=== PATIENT | female | born 1965 | race Caucasian/White ===

== ENCOUNTER 2020-06-10 08:49 | Emergency (ER) | payer BC ==
[~2020-06-10] VITALS: Ht 157.5 cm; Wt 72.6 kg
[2020-06-10 08:50] VITALS: BP_SYST 143
[2020-06-10 09:09] VITALS: BP_SYST 143
== END 2020-06-10 09:10 | disposition home or self-care (01) ==
LOC: SED 08:49
DX: L50.9 Urticaria, unspecified (principal); R03.0 Elevated blood-pressure reading, without diagnosis of hypertension; Z88.6 Allergy status to analgesic agent; Z91.013 Allergy to seafood
CPT/HCPCS: 99283